=== PATIENT | female | born 1975 | race Caucasian/White ===

== ENCOUNTER 2017-02-23 18:26 | Inpatient (IN) | payer OTHER ==
[2017-02-23] MEDS ORDERED: Dinoprostone* 10 MG VAG.SUPP VAGINAL ONE (18:50)
[2017-02-24 09:26] LABS: Hematocrit 35 % (35-47); Hemoglobin 11.5 g/dl (12.0-16.0); Mean Corpuscular HGB Conc 33 g/dl (31-36); Mean Corpuscular Hemoglobin 30 pg (27-31); Mean Corpuscular Volume 90 fL (80-97); Mean Platelet Volume 11 um3 (7.4-10.4); Red Blood Count 3.86 10^6/ul (4.0-5.4); Red Cell Distribution Width 14 % (10.5-15); White Blood Count 12.8 10^3/ul (3.5-10.8)
[2017-02-24 09:37] LABS: Add Diff/Slide Review? Slide Review Added; Comments Flag Yes
[2017-02-24] MEDS ORDERED: ceFOXitin 2 GM IVPREMIX* 2 GM/50 ML BAG IVPB ONE (09:48)
[2017-02-24] MEDS ORDERED: Sodium Citrate/Citric Acid* 15 ML UDC PO ONE (09:50)
[2017-02-24] MEDS ORDERED: Famotidine IV* 10 MG/ML 2 ML (20 mg) ONE (12:15)
[2017-02-24] MEDS ORDERED: Bupivacaine 0.5% SDV PF* 30 ML VIAL ONE (12:15)
[2017-02-24] MEDS ORDERED: OXYTOCIN* 10 UNITS/ML 1 ML VIAL ONE (12:15)
[2017-02-24] MEDS ORDERED: fentaNYL* 50 MCG/ML 2 ML VIAL (100 MCG VIAL) IV PRN (12:22)
[2017-02-24] MEDS ORDERED: DiMENhydriNATE IV* 50 MG/ML VIAL IV PUSH PRN (12:22)
[2017-02-24] MEDS ORDERED: Acetaminophen TAB* 325 MG PO PRN (12:22)
[2017-02-24] MEDS ORDERED: HYDROmorphone* 1 MG/ML 1 ML SYR IV PRN (12:22)
[2017-02-24] MEDS ORDERED: Naloxone* 0.4 MG/ML 1 ML VIAL IV PRN (12:23)
[2017-02-24] MEDS ORDERED: Morphine PF AMP (0.5MG/ML)* 5 MG/10 ML AMP ONE (12:28)
[2017-02-24] MEDS ORDERED: diPHENhydraMINE IV* 50 MG/ML 1 ml VIAL (BENADRYL) IV PRN (12:33)
[2017-02-24] MEDS ORDERED: HYDROcodone/ACETAMIN 5-325 MG* 1 TAB PO PRN ×2 (12:33)
[2017-02-24] MEDS ORDERED: Scopolomine PATCH Remove* 1 NOTE MISC PATCH OFF PRN (12:33)
[2017-02-24] MEDS ORDERED: PROCHLORPERAZINE INJ 5 MG/ML 2 ML VIAL IV PRN (12:33)
[2017-02-24] MEDS ORDERED: Scopolamine 1.5 mg* PATCH TRANSDERM PRN (12:33)
[2017-02-24] MEDS ORDERED: Ondansetron INJ* 2 MG/ML VIAL IV PRN (12:33)
[2017-02-24] MEDS ORDERED: Ketorolac INJ* 30 MG/ML 1 ML VIAL IV SCH (13:00)
[2017-02-24] MEDS ORDERED: Phenylephrine IV* 40 MCG/ML 10 ML SYRINGE ONE (13:05)
[2017-02-24] MEDS ORDERED: Ketorolac INJ* 30 MG/ML 1 ML VIAL ONE (13:36)
[2017-02-24] MEDS ORDERED: Dibucaine 1% 28.35 GM TUBE PR PRN (13:47)
[2017-02-24] MEDS ORDERED: Witch Hazel PAD* JAR TOPICAL PRN (13:47)
[2017-02-24] MEDS ORDERED: Glycerin ADULT SUPP PR PRN (13:47)
[2017-02-24] MEDS ORDERED: Zolpidem TAB* 5 MG PO PRN (13:47)
[2017-02-24] MEDS ORDERED: Oxytocin in LR* 20 UNITS/1,000 ML BAG IVPB SCH (14:00)
[2017-02-24] MEDS ORDERED: Lidocaine 1% MPF* 2 ML VIAL ONE (16:40)
[2017-02-24] MEDS: Docusate CAP* 100 MG PO SCH (16:56)
[2017-02-24] MEDS: Simethicone CHEW TAB* 80 MG PO SCH (17:20)
[2017-02-24] MEDS: Acetaminophen TAB* 325 MG PO SCH ×2 (17:21→22:55)
[2017-02-24] MEDS: Ketorolac INJ* 30 MG/ML 1 ML VIAL IV SCH (20:26)
--- NOTE | 2017-02-24 22:47 | OP ---
AMENDED REPORT NOW INCLUDES DATE OF OPERATION - ESIGNED BEFORE ADJUSTMENT * DATE OF OPERATION: 02/24/17 - ROOM #[id number] DATE OF : 77 SURGEON: Dr. Hill. BRACELET MAKER NOVELTY: Magdalene Swartz CNM ANESTHESIOLOGIST: Dr. Hernandez ANESTHESIA: Spinal. PRE-OP DIAGNOSES: 1. Mild preeclampsia. 2. Advanced maternal age. 3. Failed induction. POST-OP DIAGNOSES: 1. Mild preeclampsia. 2. Advanced maternal age. 3. Failed induction. OPERATIVE PROCEDURE: Low transverse section. ESTIMATED BLOOD LOSS: 600 cc. SPECIMEN: Fluids with 2 L crystalloid. FINDINGS: This is a 41-year-old 1, para 0 at 38 plus weeks who was admitted with very mild preeclampsia that had been indolent throughout since about 35 weeks. She also felt to be AMA, was setup for induction. At the time of , she had a viable male, Apgars 8 and 9, weight was 7 pounds 11 ounces, also note she had a 3 x 3 cm right subserosal fibroid that was sessile. Both tubes and ovaries appeared normal. DESCRIPTION OF PROCEDURE: The patient identified and procedure identified as a low transverse section. The patient was taken to the operating room and prepped and draped in the usual fashion in the left lateral recumbent position under spinal anesthesia. A Pfannenstiel incision was made in the abdomen, carried down through fat, fascia and peritoneum. A transverse incision was made in the low uterine segment, extended laterally using the bandage scissors. The above was delivered through the incision with ease. The cord was doubly clamped and cut and the was handed to the awaiting fur blowing machine operator. Cord blood was obtained. Placenta delivered spontaneously. The uterus was wiped out with a wet lap sponge. The uterine incision was then closed using 0 Polysorb in a running fashion. A second layer was used to imbricate the first layer. Good hemostasis was verified. The uterus was placed back into the abdominal cavity. The gutter was wiped out with a wet lap sponge. Again, good hemostasis was verified. The peritoneum was closed using 3-0 Polysorb in a running fashion. Good hemostasis was achieved in the subrectus layers and the fascia was closed using 0 Polysorb in a running fashion. Good hemostasis was achieved in the subcu and the space was closed using 3-0 Polysorb in a simple fashion and the skin was closed with 4-0 Monocryl in a subcuticular fashion. All sponge and instrument counts were correct and the patient returned to the recovery room in stable condition. [id number]/[facility] #: [id number] [facility]
[2017-02-25] MEDS: Docusate CAP* 100 MG PO SCH ×4 (00:31→21:22)
[2017-02-25] MEDS: Simethicone CHEW TAB* 80 MG PO SCH ×5 (00:32→21:21)
[2017-02-25] MEDS: Ketorolac INJ* 30 MG/ML 1 ML VIAL IV SCH ×2 (02:25→07:51)
[2017-02-25] MEDS: Acetaminophen TAB* 325 MG PO SCH ×2 (03:05→07:35)
[2017-02-25] MEDS ORDERED: oxyCODONE/Acetamin 5/325 MG* TAB PO PRN (04:30)
[2017-02-25] MEDS: Acetaminophen TAB* 325 MG PO PRN ×3 (07:52→21:26)
[2017-02-25 08:31] LABS: Hematocrit 31 % (35-47); Hemoglobin 10.1 g/dl (12.0-16.0); Mean Corpuscular HGB Conc 33 g/dl (31-36); Mean Corpuscular Hemoglobin 30 pg (27-31); Mean Corpuscular Volume 91 fL (80-97); Mean Platelet Volume 11 um3 (7.4-10.4); Red Cell Distribution Width 15 % (10.5-15); White Blood Count 11.5 10^3/ul (3.5-10.8)
[2017-02-25] MEDS: Ferrous Gluconate TAB* 324 MG TAB PO SCH ×2 (08:39→21:22)
[2017-02-25] MEDS ORDERED: Tetan/Diph/Pertus SYR(Tdap)* 0.5 ML SYR(BOOSTRIX) use SYR IM ONE (09:00)
[2017-02-25] MEDS: Ibuprofen TAB* 600 MG PO PRN ×2 (15:32→21:25)
[2017-02-26] MEDS: Acetaminophen TAB* 325 MG PO PRN (01:28)
[2017-02-26] MEDS: Ibuprofen TAB* 600 MG PO PRN ×3 (04:03→19:15)
[2017-02-26] MEDS: oxyCODONE/Acetamin 5/325 MG* TAB PO PRN ×5 (04:03→23:32)
[2017-02-26] MEDS: Ferrous Gluconate TAB* 324 MG TAB PO SCH (08:53)
[2017-02-26] MEDS: Docusate CAP* 100 MG PO SCH ×3 (08:56→21:31)
[2017-02-26] MEDS: Simethicone CHEW TAB* 80 MG PO SCH ×4 (08:56→21:31)
[2017-02-26 19:52] VITALS: BP 141/83
[2017-02-27] MEDS: Ibuprofen TAB* 600 MG PO PRN ×3 (01:19→14:13)
[2017-02-27] MEDS: oxyCODONE/Acetamin 5/325 MG* TAB PO PRN ×4 (03:38→17:06)
[2017-02-27] MEDS: Docusate CAP* 100 MG PO SCH ×2 (08:05→14:13)
[2017-02-27] MEDS: Simethicone CHEW TAB* 80 MG PO SCH ×3 (08:05→18:55)
== END 2017-02-27 19:25 | disposition home or self-care (01) | DRG 766 ==
LOC: MCHOBOUT 18:26 → MCHOB 19:43
PROVIDERS: ADMIT Obstetrics & Gynecology; ATTEND Obstetrics & Gynecology
PROC: 10D00Z1 Extraction of Products of Conception, Low, Open Approach (ICD-10-PCS; principal; 2017-02-25)
PROC: 3E033VJ Introduction of Other Hormone into Peripheral Vein, Percutaneous Approach (ICD-10-PCS; 2017-02-25)
DX: O62.0 Primary inadequate contractions (principal); E07.89 Other specified disorders of thyroid; O14.04 Mild to moderate pre-eclampsia, complicating childbirth; O99.284 Endocrine, nutritional and metabolic diseases complicating childbirth; O09.512 Supervision of elderly primigravida, second trimester; Z3A.39 39 weeks gestation of pregnancy; Z37.0 Single live birth
CPT/HCPCS: 36415; 85025; 86850; 86900; 86901; A9270-GY; J0694; J1200; J1885; J2590

== ENCOUNTER 2017-03-08 22:29 | Emergency (ER) | payer OTHER ==
[2017-03-09 01:28] VITALS: BP 139/84
[2017-03-09 02:36] LABS: Hematocrit 38 % (35-47); Hemoglobin 12.9 g/dl (12.0-16.0); Mean Corpuscular HGB Conc 34 g/dl (31-36); Mean Corpuscular Hemoglobin 31 pg (27-31); Mean Corpuscular Volume 91 fL (80-97); Mean Platelet Volume 9 um3 (7.4-10.4); Red Cell Distribution Width 14 % (10.5-15); White Blood Count 9.4 10^3/ul (3.5-10.8)
[2017-03-09] MEDS ORDERED: Cephalexin CAP* 500 MG PO ONE (03:16)
[2017-03-09 03:48] LABS: BUN/Creatinine Ratio 26.7 (8-20); Blood Urea Nitrogen 24 mg/dL (6-24); CO2 Carbon Dioxide 24 mmol/L (22-32); Calcium 9.6 mg/dL (8.6-10.3); Chloride 102 mmol/L (101-111); EGFR African American 89.2 (>60); EGFR Non-African American 69.3 (>60); Glucose 88 mg/dL (70-100); Sodium 135 mmol/L (133-145)
--- NOTE | 2017-03-09 07:45 | RAD ---
HISTORY: Bilateral lower extremity pain and edema TECHNIQUE: Multiple transverse and longitudinal ultrasound images were obtained of the veins of the bilateral lower extremities using grayscale, color Doppler, and spectral Doppler imaging with and without compression and with augmentation. FINDINGS: VEINS: The common femoral vein, deep femoral vein, femoral vein and popliteal vein are compressible throughout their course, with normal flow on color Doppler imaging and normal response to augmentation on spectral Doppler imaging. SOFT TISSUES: Grossly normal. No large popliteal fossa cyst was identified. IMPRESSION: No sonographic evidence of deep vein thrombosis.
--- NOTE | 2017-03-09 11:55 | ED ---
Tasneem Singer Rebecca, scribed for Liv Horton MD on 03/09/17 at 0214 . Lower Extremity - HPI Summary HPI Summary: Pt is a 41 y/o F who presents to the ED, accompanied by her sister, c/o bilateral erythema and swelling of the calves. Sx began suddenly 2 days ago and have been constant since onset. Sx aggravated and alleviated by nothing. Additionally c/o small erythematous patches on her upper extremities and a small triangle of ecchymosis on her back that began in her 3rd trimester. Denies any pain, currently ranking pain as 0/10. Pt is 12 days and gave via . Pt notes that she is her 12 day old infant who had been in the NICU for 1 week. A0. LNMP 2 weeks ago. - History of Current Complaint Chief Complaint: EDSoftTissueLowExtr Stated Complaint: R/O DVT-2WKS Time Seen by Provider: 03/08/17 22:44 Hx Obtained From: Patient Hx Last Menstrual Period: 2 weeks Mechanism Of Injury: Unknown Onset of Pain: Days - 2 days Onset/Duration: Still Present Severity Currently: None Pain Intensity: 0 Pain Scale Used: 0-10 Numeric Timing: Constant Character Of Pain: Aching Associated Signs And Symptoms: Positive: Swelling, Redness - Bilateral calf erythema; small erythematous patches on the upper extremities Aggravating Factor(s): Nothing Alleviating Factor(s): Nothing Able to Bear Weight: Yes - Risk Factors DVT Risk Factors: - recent delivery, 12 days ago, by - Allergies/Home Medications Allergies/Adverse Reactions: Allergies Allergy/AdvReac Type Severity Reaction Status Date / Time Gluten Meal Allergy Pain Verified 05/05/15 20:46 soy Allergy Pain Uncoded 05/05/15 20:46 PMH/Surg Hx/FS Hx/Imm Hx Endocrine/Hematology History: Reports: Hx Thyroid Disease - jose Musculoskeletal History: Denies: Hx Rheumatoid Arthritis, Hx Osteoporosis - Surgical History Surgery Procedure, Year, and Place: [id number] Infectious Disease History: No Infectious Disease History: Denies: Traveled Outside the [place] in Last 30 Days - Family History Known Family History: Positive: Diabetes, Other - Hypothyroid, thyroid disease - Social History Alcohol Use: Occasionally Substance Use Type: Reports: None Smoking Status (MU): Never Smoked Tobacco Review of Systems Constitutional: Negative Cardiovascular: Negative Respiratory: Negative Positive: Edema - Bilateral calf edema Positive: Bruising - Bruise in the back that began in the 3rd trimester of her , Other - Bilateral calf erythema; small erythematous patches on the upper extremities Neurological: Negative Psychological: Normal All Other Systems Reviewed And Are Negative: Yes Physical Exam Triage Information Reviewed: Yes Vital Signs On Initial Exam: Initial Vitals Temp Pulse Resp BP Pulse Ox 97.4 F 89 18 140/84 99 03/08/17 22:39 03/08/17 22:39 03/08/17 22:39 03/08/17 22:39 03/08/17 22:39 Vital Signs Reviewed: Yes Appearance: Positive: Well-Nourished, Ill-Appearing - Mild, Pain Distress Skin: Positive: Skin Color Reflects Adequate Perfusion, Dry, Other - Bilateral lower extremity redness from toes to midcalf. no palpable cord. Pt has shaved legs but no definite inflamed hair follicles. Confluent redness with white scaling on her forehead. 3 cm ecchymosis on her right ventral forearm. Multiple 0.5 cm macular erythematous lesions on the bilateral forearms. 3cm bluish discolored area interscapular Eyes: Positive: Conjunctiva Clear ENT: Positive: Normal ENT inspection Neck: Positive: Supple Respiratory/Lung Sounds: Positive: Clear to Auscultation, Breath Sounds Present , Other - No respiratory distress Cardiovascular: Positive: RRR, Other - Brisk capillary refill, pulses normal. Negative: Murmur Abdomen Description: Positive: Nontender, No Organomegaly, Soft Musculoskeletal: Positive: Strength/ROM Intact Neurological: Positive: Alert, Oriented to Person Place, Time, Other - Muscle tone normal. Negative: Facial Droop, Focal Deficit @, Slurred Speech Psychiatric: Positive: Affect/Mood Appropriate Diagnostics - Vital Signs Vital Signs Temp Pulse Resp BP Pulse Ox 03/09/17 01:28 98.8 F 71 18 139/84 98 03/09/17 01:25 69 97 03/09/17 01:24 139/84 03/08/17 22:39 97.4 F 89 18 140/84 99 - Laboratory Lab Results: Lab Results 03/09/17 03/09/17 Range/Units 01:53 01:53 WBC 9.4 (3.5-10.8) 10^3/ul RBC 4.20 (4.0-5.4) 10^6/ul Hgb 12.9 (12.0-16.0) g/dl Hct 38 (35-47) % MCV 91 (80-97) fL MCH 31 (27-31) pg MCHC 34 (31-36) g/dl RDW 14 (10.5-15) % Plt Count 347 (150-450) 10^3/ul MPV 9 (7.4-10.4) um3 Neut % (Auto) 55.8 (38-83) % Lymph % (Auto) 28.4 (25-47) % Spencer % (Auto) 10.2 H (1-9) % Eos % (Auto) 4.7 (0-6) % Baso % (Auto) 0.9 (0-2) % Absolute Neuts (auto) 5.2 (1.5-7.7) 10^3/ul Absolute Lymphs (auto) 2.7 (1.0-4.8) 10^3/ul Absolute Monos (auto) 1.0 H (0-0.8) 10^3/ul Absolute Eos (auto) 0.4 (0-0.6) 10^3/ul Absolute Basos (auto) 0.1 (0-0.2) 10^3/ul Absolute Nucleated RBC 0.01 10^3/ul Nucleated RBC % 0.1 INR (Anticoag Therapy) 0.86 L (0.89-1.11) Result Diagrams: 03/09/17 01:53 03/09/17 01:53 Lab Statement: Any lab studies that have been ordered have been reviewed, and results considered in the medical decision making process. - Ultrasound No standard instances Ultrasound Interpretation: No Acute Changes - Bilateral Veinous study: Bilateral lower extremity venous duplex negative for deep venous thrombosis. Ultrasound Interpretation Completed By: Radiologist Re-Evaluation - Re-Evaluation First Eval Re-Evaluation Time: 03:38 Change: Improved Comment: Counseled pt on the safety and use of Cipro while . Lower Extremity Course/Dx - Course Assessment/Plan: Pt is a 41 y/o F who presents to the ED accompanied by her sister with a CC of bilateral calf swelling and erythema wihtout any pain for 2 days. Additionally c/o small, erythematous patches on the upper extremities and a region of ecchymosis on her back, between the shoulder blades that began in the 3rd trimester of her . Pt medications reviewed this visit. Allergies noted. Venous US study revealed no acute findings. Pt will be D/C to home with a Dx of cellulitis with a follow up with her PCP and a sandwich wrapper. Pt had concern about safety of medications while , advised that cephalexin is safe, advised caution with benadryl (if concern for allergic reaction, since redness is also pruritic). Advised she may take claritin while . - Diagnoses Differential Diagnosis/HQI/PQRI: Positive: Cellulitis, DVT, Other - allergic reaction Provider Diagnoses: Cellulitis Discharge - Discharge Plan Condition: Stable Disposition: HOME Prescriptions: Cephalexin CAP* [Keflex 500 CAP*] 500 mg PO QID #40 cap Patient Education Materials: Cellulitis (ED) Referrals: Alisha Henderson [Medical Doctor] - As Soon As Possible (sandwich wrapper for skin lesions ) Feng MICHAUD,Rey Lux [Primary Care Provider] - 2 Days Additional Instructions: Your ultrasound did not show any blood clots in either leg. The cephalexin antibiotic will treat possible infectious cause of your red legs. It is safe while you are nursing your baby. Return to the ER if you have any new or worsening symptoms. The documentation as recorded by the Tasneem crowe Rebecca accurately reflects the service I personally performed and the decisions made by me, Liv Horton MD.
== END 2017-03-09 03:15 | disposition home or self-care (01) ==
LOC: ED 22:29
DX: L03.90 Cellulitis, unspecified (principal); R60.0 Localized edema; L53.9 Erythematous condition, unspecified
CPT/HCPCS: 36415; 80048; 85025; 85610; 93970; 99281; A9270-GY